=== PATIENT | female | born 2000 | race Two or more races ===

== ENCOUNTER 2019-07-16 19:37 | Emergency (ER) | payer MEDICAID ==
[~2019-07-16] VITALS: Ht 160 cm; Wt 54.9 kg
[2019-07-16 20:15] LABS: BASOPHILS # (AUTO) 0.06 x10^3/uL (0-0.3); BASOPHILS % (AUTO) 1 % (0-1); EOSINOPHILS # (AUTO) 0.21 x10^3/uL (0-0.8); EOSINOPHILS % (AUTO) 2 % (1-7); LYMPHOCYTES # (AUTO) 3.75 x10^3/uL (1-6.1); LYMPHOCYTES % (AUTO) 34 % (22-44); MD NO; MEAN CORPUSCULAR HEMOGLOBIN 31.7 pg (27.0-34.8); MEAN CORPUSCULAR HGB CONC 33.7 g/dL (32.4-35.8); MEAN PLATELET VOLUME 7.9 fL (7.4-10.4); MONOCYTES # (AUTO) 0.72 x10^3/uL (0-1.4); MONOCYTES % (AUTO) 7 % (2-9); NEUTROPHILS # (AUTO) 6.24 x10^3/uL (1.8-8.0); NEUTROPHILS % (AUTO) 57 % (42-75); PLATELET COUNT 313 x10^3/uL (130-400); RED BLOOD COUNT 4.66 x10^6/uL (3.82-5.3); RED CELL DISTRIBUTION WIDTH 12.6 % (9.6-15.2)
[2019-07-16 20:26] LABS: ALANINE AMINOTRANSFERASE 39 U/L (12-78); ALBUMIN 4.3 g/dL (3.4-5.0); ANION GAP 8 mmol/L (5-15); CALCIUM 9.1 mg/dL (8.5-10.1); CHLORIDE 105 mmol/L (98-107); CREATININE 1.06 mg/dL (0.55-1.02)
[2019-07-16 20:31] LABS: ALKALINE PHOSPHATASE 57 U/L (45-117); BILIRUBIN,TOTAL 0.6 mg/dL (0.2-1.0); TOTAL PROTEIN 7.7 g/dL (6.4-8.2)
[2019-07-16 21:56] VITALS: BP 123/78
[2019-07-16 22:31] LABS: MICROSCOPIC NOT IND
[2019-07-16 22:34] LABS: CULTURE INDICATED? NO
--- NOTE | 2019-07-16 22:49 | NUR ---
C/O N/V IN THE AM AND INTERMITTENT NAUSEA THROUGHOUT DAY. SEVERE EPIGASTRIC PAIN ALONG WITH N/V. ALL GOTTEN WORSE OVER LAST FEW DAYS. CONNECTED TO MONITORING. CALL LIGHT IN REACH.
== END 2019-07-16 23:16 | disposition home or self-care (01) ==
LOC: ED 23:10
DX: K29.00 Acute gastritis without bleeding (principal); R11.2 Nausea with vomiting, unspecified
CPT/HCPCS: 36415; 80053; 81003; 83690; 84703; 85025; 99283